=== PATIENT | male | born 2000 | race Caucasian/White ===

== ENCOUNTER 2023-05-06 12:05 | Emergency (ER) | payer MEDICAID, SELFPAY ==
--- NOTE | 2023-05-06 13:27 | ED.GENADULT ---
HPI - General Adult General Chief complaint: Upper Respiratory Symptoms Stated complaint: Sore Throat Time Seen by Provider: 05/06/23 15:43 Source: patient and family (mother) Mode of arrival: ambulatory Limitations: no limitations History of Present Illness HPI narrative: Patient is a 23-year-old male with history of autism presenting to the ED with mother with complaint of sore throat, nonproductive cough for 3 days. Subjective fever, mother has medicated with Tylenol and Robitussin. Denies chest pain or palpitations. MD complaint: sore throat, cough Onset (ago): day(s) Severity: mild Associated symptoms: cough Treatments prior to arrival: other (Tylenol, robitussin) Related Data Previous Rx's Medication Instructions Recorded benzonatate 100 mg capsule 100 mg PO TID PRN cough #20 caps 05/06/23 Allergies Allergy/AdvReac Type Severity Reaction Status Date / Time diphenhydramine Allergy Unknown RASH Verified 05/06/23 13:33 [From Benadryl] Review of Systems Review of Systems: As per HPI. Yes all other systems are reviewed and are negative Constitutional: Constitutional: Reports as per HPI [facility] Social History Social History Advance Directives: No Advance Directives Information Provided: No Physical Exam ED Vital Signs: Vital Signs - 24 hr 05/06/23 13:29 Temperature 98.9 F Pulse Rate 87 Respiratory Rate 16 Blood Pressure 119/69 Pulse Oximetry 94 Oxygen Delivery Method Room Air BMI result Body Mass Index 22.9 Vital signs have been reviewed and appear to be correct. Blood pressure normal. Heart rate normal. Respiratory rate normal. Temperature normal. Oxygen saturation normal. Const General: cooperative, healthy appearing and no acute distress Orientation/consciousness: oriented to person, oriented to place, oriented to time and patient oriented x3 Limitations: no limitations HENMA Head: Yes normocephalic and Yes atraumatic Ears: external ears normal General nose exam: Normal external nose present Face and sinus: Yes face symmetric Mouth: oropharynx normal and moist mucous membranes Throat: Yes uvula midline Eyes Pupils: Equal, round and reactive pupils present Neck Neck: Yes normal visual inspection and Yes supple Resp Effort & Inspection: normal respiratory effort and able to speak in complete sentences Auscultation: clear to auscultation bilaterally Cardio Rate: regular rate Rhythm: regular rhythm Heart sounds: S1 normal heart sound present and S2 normal heart sound present GI Palpation (GI): Soft to palpation and nontender Auscultation: normoactive bowel sounds General: Yes no CVA tenderness Back/Spine/Pelvis Back: no CVA tenderness Skin General skin exam: elasticity normal and turgor normal Neuro General: oriented to person, oriented to place, oriented to time, patient oriented x3, moves all extremities, no focal motor deficits and CN's II-XI intact bilaterally Cranial nerves: Yes Equal, round and reactive pupils present Cognition (Neuro): normal cognition Extrem General: Yes full ROM, Yes no pedal edema and Yes no calf tenderness Psych Mental Status: mental status grossly normal Affect: normal affect Thought process: Normal thought process present Medical Decision Making Medical Decision Making MDM Narrative: Patient is a 23-year-old male with history of autism presenting to the ED with mother with complaint of sore throat, cough for 3 days. On exam patient is awake, A+Ox3, VS WNL, afebrile, normal neurological exam without focal deficits, physical exam findings as above. Given reported symptoms and physical exam findings, initial differential includes Viral URI, COVID, flu, RSV, strep pharyngitis. RSV swab positive, all other swabs negative. Patient mother updated on results and all questions answered. Discussed that treatment is symptomatic, can continue to medicate with Tylenol, will prescribe benzonatate as needed for cough. Instructed patient to follow-up with primary care provider. Return precautions discussed at bedside. Patient and mother verbalized understanding of and agreement with plan. Differential Diagnosis Differential Diagnoses: The differential diagnosis associated with the presentation includes as per MDM. Lab Data [facility] Lab Attestation statement: I reviewed the patient's lab results. As per MDM. Labs: Lab Results 05/06/23 Range/Units 13:36 Influenza Type A (PCR) NEGATIVE (Negative) Influenza Type B (PCR) NEGATIVE (Negative) RSV RNA Qual (PCR) POSITIVE A (Negative) SARS-CoV-2 RNA (RT-PCR) NEGATIVE (Negative) S. pyogenes GrpA [facility] Negative (Negative) Independent Historian Clinical information obtained from an independent historian. History obtained from or confirmed by: Parent External Record Review External record reviewed: Inpatient record, Office record and Outpatient record Prescription Management I considered prescription management with: Other Discharge Plan Discharge Clinical Impression: RSV infection Patient Disposition: Home, Self-Care Instructions: Respiratory Syncytial Virus (ED) Additional Instructions: Usted fue evaluado hoy en el departamento de emergencias por dolor de garganta y tos. Mchugh prueba de RSV fue positiva. Alice es un virus respiratorio y es contagioso. Debe seguir usando michael mascarilla mientras tenga s?ntomas. Dea s?ntomas deber?an resolverse con el tiempo con reposo y l?quidos. Puede doug 650 mg de Tylenol o 600 mg de ibuprofeno cada 6 horas seg?n sea necesario para la fiebre o el dolor. Le recetan benzonatato, que puede doug cada 8 horas seg?n sea necesario para la tos. Lakisha un seguimiento con mchugh proveedor de atenci?n primaria para detectar cualquier s?ntoma continuo. Regrese al departamento de emergencias si presenta un dolor que empeora, dificultad para respirar, fiebre no controlada con Tylenol e ibuprofeno, dolor en el pecho, mareos o aturdimiento, o cualquier otro s?ntoma preocupante. Prescriptions: New benzonatate 100 mg capsule 100 mg PO TID PRN (Reason: cough) Qty: 20 0RF Print Language: Ken[place]
[2023-05-06 13:29] VITALS: BP 119/69; PULSE 87; RESP 16; TEMP 37.2; O2SAT 94; BMI 22.9
[2023-05-06 13:55] LABS: IDNOW Serial# 08D9AD1C; Strep A Nucleic Acid Negative (Negative)
[2023-05-06 14:38] LABS: Influenza A PCR NEGATIVE (Negative); Influenza B PCR NEGATIVE (Negative); Resp Syncy Virus RNA Qual PCR POSITIVE (Negative); SARS COV2 PCR INHOUSE NEGATIVE (Negative)
== END 2023-05-06 15:50 | disposition home or self-care (01) ==
PROVIDERS: Emergency Provider Emergency Medicine
DX: R05.9 Cough, unspecified (principal); B97.4 Respiratory syncytial virus as the cause of diseases classified elsewhere; J02.9 Acute pharyngitis, unspecified
CPT/HCPCS: 0241U; 87651; 99282; 99283

== ENCOUNTER 2024-03-16 11:30 | Outpatient (REF) | payer MEDICAID, SELFPAY ==
[2024-03-16 14:25] LABS: Cholesterol 198 mg/dL (<200); HDL Cholesterol 33 mg/dL (>40); LDL Cholesterol Calculated 95 mg/dL (<100); Triglycerides 350 mg/dL (<150)
== END 2024-03-16 11:31 | disposition home or self-care (01) ==
LOC: HO.HHCL 11:30
PROVIDERS: Visit Provider Nurse Practitioner Family
DX: Z00.00 Encounter for general adult medical examination without abnormal findings (principal)
CPT/HCPCS: 36415; 80061